=== PATIENT | female | born 1960 | race Hispanic/Latino ===

== ENCOUNTER 2024-01-13 03:10 | Inpatient (IN) | payer SELFPAY ==
[2024-01-13] MEDS ORDERED: Ondansetron PF 4 MG/2 ML Vial IVP PRN (03:40)
[2024-01-13 04:42] LABS: #Basophils Less than 0.03 10x3/uL (0.0-0.2); #Eosinphils Less than 0.03 10x3/uL (0.0-0.7); %Eosinophils 0.2 % (0.0-10.0); %Lymphocytes 19.9 % (21.0-51.0); %Monocytes 3.3 % (0.0-10.0); %Neutrophils 73.9 % (42.0-75.0); Hematocrit 23.2 % (36.0-47.0); Hemoglobin 6.4 g/dL (12.0-16.0); Mean Corpuscular HGB CONC 27.6 g/dL (32.0-36.0); Mean Corpuscular Hemoglobin 20.6 pg (27.0-31.0); Mean Corpuscular Volume 74.8 fL (78.0-98.0); Mean Platelet Volume 10.4 fL (7.4-10.4); Platelet Count 267 10x3/uL (130-400); RBC Distribution Width 22.6 % (11.5-14.5)
[2024-01-13 04:45] LABS: INR-International Normal Ratio 1.1; Prothrombin Time 13.8 sec (12.0-14.7)
[2024-01-13 04:58] LABS: ALT (SGPT) 15 U/L (8-55); AST (SGOT) 10 U/L (5-34); Albumin 2.2 g/dL (3.4-4.8); Alkaline Phosphatase 83 U/L (40-110); Anion Gap 13 mmol/L (10-20); BUN (Urea Nitrogen) 27 mg/dL (9.8-20.1); Bilirubin, Total 0.2 mg/dL (0.2-1.2); Calc. Creatinine Clearance 0 mL/min (70-130); Calcium 7.7 mg/dL (7.8-10.44); Carbon Dioxide 19 mmol/L (23-31); Chloride 119 mmol/L (98-107); Estimated GFR 99; Glucose 111 mg/dL (80-115); Iron 10 ug/dL (50-170); Iron Binding Capacity, Total 275 mcg/dL (265-497); Iron Binding Capacity, Total 278 mcg/dL (265-497); Potassium 3.9 mmol/L (3.5-5.1); Protein, Total 5.2 g/dL (5.8-8.1); Sodium 147 mmol/L (136-145)
[2024-01-13 05:09] LABS: Burr Cells SLIGHT = 2-5 cells HPF (0-1); Hypochromia SLIGHT = 6-15 cells HPF (0-5); Macrocytosis SLIGHT = 6-15 cells HPF (0-5); Ovalocytes MODERATE= 6-15 cells HPF (0-1); Platelet Adequacy Comment Platelets Normal; Polychromasia MODERATE = 3-4 cells HPF (0-2); Target Cells SLIGHT = 2-5 cells HPF (0-1); Tear Drops SLIGHT = 2-5 cells HPF (0-1)
[2024-01-13 08:14] VITALS: BMI 30.2
[2024-01-13] MEDS: Nystatin 500,000 UNITS/5 ML UDCUP SSW SCH (09:29)
[2024-01-13] MEDS: Pantoprazole 40 MG VIAL IVP SCH (09:29)
[2024-01-13] MEDS: Ferrous Sulfate 325 MG TAB PO SCH (09:29)
[2024-01-13] MEDS: traMADol HCl 50 MG TAB PO PRN (10:09)
[2024-01-13] MEDS ORDERED: Iopamidol 370 76% 100 ML VIAL ONE (11:08)
[2024-01-13 12:57] LABS: Hematocrit 26.4 % (36.0-47.0); Hemoglobin 7.9 g/dL (12.0-16.0); Platelet Count 254 10x3/uL (130-400)
[2024-01-13] MEDS: Methocarbamol 500 MG TAB PO PRN (13:24)
[2024-01-13 13:31] LABS: Prothrombin Time 13.5 sec (12.0-14.7)
[2024-01-13 15:27] LABS: Hematocrit 27.5 % (36.0-47.0); Hemoglobin 8.3 g/dL (12.0-16.0)
[2024-01-13] MEDS: Dextrose 5 %-0.45 % NaCl 1,000 ML IV SCH (15:33)
[2024-01-13 15:53] LABS: Anion Gap 11 mmol/L (10-20); BUN (Urea Nitrogen) 17 mg/dL (9.8-20.1); Calc. Creatinine Clearance 121 mL/min (70-130); Carbon Dioxide 22 mmol/L (23-31); Chloride 112 mmol/L (98-107); Estimated GFR 105; Glucose 80 mg/dL (80-115); Potassium 4.4 mmol/L (3.5-5.1); Sodium 141 mmol/L (136-145)
[2024-01-13] MEDS: Sodium Ferric Gluconate 250 MG in Sodium Chloride 0.9% 250 ML 250 ML IVPB SCH ×2 (16:10→16:33)
[2024-01-13] MEDS: Acetaminophen 325 MG TAB PO PRN (16:36)
[2024-01-13 18:21] VITALS: BMI 30.2
[2024-01-13 22:38] LABS: Hemoglobin 8.1 g/dL (12.0-16.0)
[2024-01-14] MEDS ORDERED: Morphine 2 MG/ML VIAL SLOW IVP PRN ×2 (04:21→13:59)
[2024-01-14] MEDS: Morphine 4 MG/ML VIAL SLOW IVP SCH (04:43)
[2024-01-14 05:21] LABS: Anion Gap 11 mmol/L (10-20); BUN (Urea Nitrogen) 9 mg/dL (9.8-20.1); Calc. Creatinine Clearance 129 mL/min (70-130); Calcium 7.9 mg/dL (7.8-10.44); Carbon Dioxide 24 mmol/L (23-31); Chloride 112 mmol/L (98-107); Estimated GFR 106; Glucose 81 mg/dL (80-115); Potassium 3.4 mmol/L (3.5-5.1); Sodium 144 mmol/L (136-145)
[2024-01-14 05:40] LABS: #Basophils Less than 0.03 10x3/uL (0.0-0.2); %Basophils 0.1 % (0.0-1.0); %Eosinophils 0.5 % (0.0-10.0); %Lymphocytes 22.6 % (21.0-51.0); %Monocytes 2.9 % (0.0-10.0); %Neutrophils 71.1 % (42.0-75.0)
[2024-01-14 05:51] LABS: Hematocrit 27.7 % (36.0-47.0); Hemoglobin 8.2 g/dL (12.0-16.0); Mean Corpuscular HGB CONC 29.6 g/dL (32.0-36.0); Mean Corpuscular Hemoglobin 22.3 pg (27.0-31.0); Mean Corpuscular Volume 75.5 fL (78.0-98.0); Mean Platelet Volume 10.7 fL (7.4-10.4); Platelet Count 267 10x3/uL (130-400); RBC Distribution Width 21.8 % (11.5-14.5); Red Blood Cell (RBC) Count 3.67 mill/uL (4.20-5.40)
[2024-01-14] MEDS: clonazePAM 1 MG TAB PO SCH (08:34)
[2024-01-14] MEDS: Ferrous Sulfate 325 MG TAB PO SCH (08:35)
[2024-01-14] MEDS: Potassium Chloride 40 MEQ in Premix 1 BAG IVPB SCH (11:48)
[2024-01-14] MEDS: Morphine 4 MG/ML VIAL SLOW IVP PRN (13:22)
[2024-01-14] MEDS ORDERED: Aluminum & Magnesium Hydroxide 60 ML, diphenhydrAMINE 150 MG, Lidocaine 2% Viscous Solu... SSW PRN ×2 (15:42→16:00)
[2024-01-14] MEDS: HYDROcodone/Acetaminophen 5/325 mg Tablet PO PRN (16:54)
[2024-01-15 04:01] LABS: #Basophils Less than 0.03 10x3/uL (0.0-0.2); %Basophils 0.1 % (0.0-1.0); %Eosinophils 0.8 % (0.0-10.0); %Lymphocytes 24.3 % (21.0-51.0); %Monocytes 2.9 % (0.0-10.0); %Neutrophils 67.9 % (42.0-75.0); Hematocrit 27.2 % (36.0-47.0); Hemoglobin 7.9 g/dL (12.0-16.0); Mean Corpuscular Hemoglobin 22.1 pg (27.0-31.0); Mean Platelet Volume 9.9 fL (7.4-10.4); Platelet Count 243 10x3/uL (130-400); RBC Distribution Width 22.7 % (11.5-14.5); Red Blood Cell (RBC) Count 3.58 mill/uL (4.20-5.40)
[2024-01-15 04:20] LABS: Anion Gap 11 mmol/L (10-20); BUN (Urea Nitrogen) 8 mg/dL (9.8-20.1); Calc. Creatinine Clearance 124 mL/min (70-130); Calcium 8.3 mg/dL (7.8-10.44); Carbon Dioxide 24 mmol/L (23-31); Chloride 111 mmol/L (98-107); Estimated GFR 105; Glucose 88 mg/dL (80-115); Potassium 3.3 mmol/L (3.5-5.1); Sodium 143 mmol/L (136-145)
[2024-01-15 08:59] LABS: Magnesium 1.9 mg/dL (1.6-2.6); Phosphorus 3.6 mg/dL (2.3-4.7)
[2024-01-15] MEDS: Furosemide 20 MG (2 mL) VIAL SLOW IVP SCH (09:47)
[2024-01-15] MEDS: Simethicone Chewable 80 MG TAB PO PRN (14:16)
[2024-01-15] MEDS: Lorazepam 0.5 MG TAB PO PRN (14:20)
[2024-01-15] MEDS: Gabapentin 100 MG CAP PO SCH (15:46)
[2024-01-15] MEDS: Clindamycin/D5W 900 MG in Premix 1 BAG IVPB SCH (15:47)
[2024-01-15] MEDS: Polyethylene Glycol 3350 17 GM Packet PO SCH (16:56)
[2024-01-15] MEDS: Lidocaine 4% Patch TD SCH (17:22)
[2024-01-16 04:31] LABS: #Basophils Less than 0.03 10x3/uL (0.0-0.2); %Basophils 0.2 % (0.0-1.0); %Eosinophils 0.5 % (0.0-10.0); %Lymphocytes 26.1 % (21.0-51.0); %Monocytes 3.7 % (0.0-10.0); %Neutrophils 66.4 % (42.0-75.0); Hematocrit 28.6 % (36.0-47.0); Hemoglobin 8.5 g/dL (12.0-16.0); Mean Corpuscular HGB CONC 29.7 g/dL (32.0-36.0); Mean Corpuscular Volume 74.1 fL (78.0-98.0); Mean Platelet Volume 10.4 fL (7.4-10.4); Platelet Count 277 10x3/uL (130-400); RBC Distribution Width 24.8 % (11.5-14.5); Red Blood Cell (RBC) Count 3.86 mill/uL (4.20-5.40)
[2024-01-16 04:46] LABS: Anion Gap 11 mmol/L (10-20); BUN (Urea Nitrogen) 16 mg/dL (9.8-20.1); Calc. Creatinine Clearance 107 mL/min (70-130); Calcium 8.3 mg/dL (7.8-10.44); Carbon Dioxide 24 mmol/L (23-31); Chloride 107 mmol/L (98-107); Estimated GFR 102; Glucose 113 mg/dL (80-115); Potassium 3.3 mmol/L (3.5-5.1); Sodium 139 mmol/L (136-145)
[2024-01-16] MEDS: Transdermal Patch Removal TOP SCH (05:33)
[2024-01-16] MEDS: Polyethylene Glycol 3350 17 GM Packet PO SCH (08:28)
[2024-01-16] MEDS: Furosemide 20 MG (2 mL) VIAL SLOW IVP SCH (09:52)
[2024-01-17] MEDS: Potassium Bicarbonate/Cit Ac 20 MEQ TAB PO SCH (08:52)
[2024-01-18 07:15] LABS: #Basophils Less than 0.03 10x3/uL (0.0-0.2); %Basophils 0.1 % (0.0-1.0); %Eosinophils 0.9 % (0.0-10.0); %Lymphocytes 25.7 % (21.0-51.0); %Monocytes 5.6 % (0.0-10.0); %Neutrophils 66.7 % (42.0-75.0); Hematocrit 29.5 % (36.0-47.0); Hemoglobin 8.5 g/dL (12.0-16.0); Mean Corpuscular HGB CONC 28.8 g/dL (32.0-36.0); Mean Corpuscular Hemoglobin 22.4 pg (27.0-31.0); Mean Corpuscular Volume 77.8 fL (78.0-98.0); Mean Platelet Volume 10.6 fL (7.4-10.4); Platelet Count 264 10x3/uL (130-400); RBC Distribution Width 25.4 % (11.5-14.5); Red Blood Cell (RBC) Count 3.79 mill/uL (4.20-5.40)
[2024-01-18 07:30] LABS: Anion Gap 10 mmol/L (10-20); BUN (Urea Nitrogen) 7 mg/dL (9.8-20.1); Calc. Creatinine Clearance 115 mL/min (70-130); Calcium 8.5 mg/dL (7.8-10.44); Carbon Dioxide 26 mmol/L (23-31); Chloride 105 mmol/L (98-107); Estimated GFR 103; Glucose 92 mg/dL (80-115); Potassium 3.4 mmol/L (3.5-5.1); Sodium 138 mmol/L (136-145)
[2024-01-18] MEDS: Potassium Chloride 20 MEQ TAB PO SCH ×2 (08:34→15:09)
[2024-01-18] MEDS: Sodium Chloride 0.9% 500 ML IV SCH (10:21)
[2024-01-18] MEDS: Lidocaine 1% w/Epinephrine 1:100K 20 ML VIAL ONE (13:47)
[2024-01-19 04:36] LABS: #Basophils Less than 0.03 10x3/uL (0.0-0.2); %Basophils 0.3 % (0.0-1.0); %Eosinophils 0.6 % (0.0-10.0); %Lymphocytes 26.7 % (21.0-51.0); %Monocytes 7.8 % (0.0-10.0); %Neutrophils 63.4 % (42.0-75.0); Hematocrit 28.3 % (36.0-47.0); Hemoglobin 8.2 g/dL (12.0-16.0); Mean Corpuscular Hemoglobin 23.2 pg (27.0-31.0); Mean Corpuscular Volume 79.9 fL (78.0-98.0); Mean Platelet Volume 10.6 fL (7.4-10.4); Platelet Count 234 10x3/uL (130-400); RBC Distribution Width 25.3 % (11.5-14.5); Red Blood Cell (RBC) Count 3.54 mill/uL (4.20-5.40)
[2024-01-19 04:43] LABS: Anion Gap 9 mmol/L (10-20); BUN (Urea Nitrogen) 7 mg/dL (9.8-20.1); Calc. Creatinine Clearance 119 mL/min (70-130); Calcium 8.2 mg/dL (7.8-10.44); Carbon Dioxide 24 mmol/L (23-31); Chloride 108 mmol/L (98-107); Estimated GFR 104; Glucose 96 mg/dL (80-115); Potassium 3.5 mmol/L (3.5-5.1); Sodium 137 mmol/L (136-145)
[2024-01-19] MEDS: Morphine 4 MG/ML VIAL SLOW IVP PRN (12:17)
[2024-01-19] MEDS: Sulfameth/Trimethoprim DS 800-160mg TAB PO SCH (20:56)
[2024-01-19] MEDS: Diclofenac 1% 50 GM TOPICAL GEL TP PRN (20:57)
[2024-01-20 04:26] LABS: #Basophils Less than 0.03 10x3/uL (0.0-0.2); %Basophils 0.3 % (0.0-1.0); %Eosinophils 1.1 % (0.0-10.0); %Lymphocytes 27.6 % (21.0-51.0); %Monocytes 6.8 % (0.0-10.0); %Neutrophils 63.4 % (42.0-75.0); Hematocrit 29.3 % (36.0-47.0); Hemoglobin 8.7 g/dL (12.0-16.0); Mean Corpuscular HGB CONC 29.7 g/dL (32.0-36.0); Mean Corpuscular Hemoglobin 23.1 pg (27.0-31.0); Mean Corpuscular Volume 77.7 fL (78.0-98.0); Mean Platelet Volume 10.4 fL (7.4-10.4); Platelet Count 264 10x3/uL (130-400); RBC Distribution Width 25.3 % (11.5-14.5); Red Blood Cell (RBC) Count 3.77 mill/uL (4.20-5.40)
[2024-01-20 04:36] LABS: Anion Gap 9 mmol/L (10-20); BUN (Urea Nitrogen) 7 mg/dL (9.8-20.1); Calc. Creatinine Clearance 121 mL/min (70-130); Calcium 8.7 mg/dL (7.8-10.44); Carbon Dioxide 25 mmol/L (23-31); Chloride 103 mmol/L (98-107); Estimated GFR 105; Glucose 93 mg/dL (80-115); Potassium 3.2 mmol/L (3.5-5.1); Sodium 134 mmol/L (136-145)
[2024-01-20] MEDS: Potassium Chloride 20 MEQ TAB PO SCH (05:32)
[2024-01-20] MEDS: Pantoprazole DR 40 MG TAB PO SCH (09:58)
[2024-01-20] MEDS: Ketorolac Tromethamine 30 MG (1 mL) VIAL IVP SCH (10:18)
[2024-01-20] MEDS: GoLYTELY 4,000 ml Bottle PO SCH (15:21)
[2024-01-20] MEDS: Gabapentin 300 MG CAP PO SCH (15:22)
[2024-01-21 08:45] LABS: #Basophils 0.03 10x3/uL (0.0-0.2); %Basophils 0.4 % (0.0-1.0); %Eosinophils 1.3 % (0.0-10.0); %Lymphocytes 30.3 % (21.0-51.0); %Monocytes 5.7 % (0.0-10.0); %Neutrophils 61.3 % (42.0-75.0); Hematocrit 31.6 % (36.0-47.0); Hemoglobin 9.3 g/dL (12.0-16.0); Mean Corpuscular HGB CONC 29.4 g/dL (32.0-36.0); Mean Corpuscular Hemoglobin 22.4 pg (27.0-31.0); Platelet Count 286 10x3/uL (130-400); RBC Distribution Width 26.4 % (11.5-14.5); Red Blood Cell (RBC) Count 4.16 mill/uL (4.20-5.40)
[2024-01-21 09:07] LABS: Anion Gap 18 mmol/L (10-20); BUN (Urea Nitrogen) 6 mg/dL (9.8-20.1); Calc. Creatinine Clearance 110 mL/min (70-130); Calcium 8.5 mg/dL (7.8-10.44); Carbon Dioxide 22 mmol/L (23-31); Chloride 105 mmol/L (98-107); Estimated GFR 102; Glucose 70 mg/dL (80-115); Potassium 3.6 mmol/L (3.5-5.1); Sodium 141 mmol/L (136-145)
[2024-01-21 09:41] LABS: Hypochromia SLIGHT = 6-15 cells HPF (0-5); Microcytosis SLIGHT = 6-15 cells HPF (0-5); Platelet Adequacy Comment Platelets Normal; Polychromasia MODERATE = 3-4 cells HPF (0-2)
[2024-01-21] MEDS ORDERED: Iopamidol-370 76% 500 ML MDV (1 ML CHARGE) ONE (10:33)
[2024-01-21] MEDS ORDERED: Lidocaine 1% PF 5 ML VIAL ONE (12:09)
[2024-01-21] MEDS ORDERED: PROPOFOL 20 ML ONE (12:09)
[2024-01-21] MEDS: Enoxaparin 80 MG (0.8 mL) SYRINGE SC SCH (18:06)
[2024-01-21] MEDS: Ciprofloxacin 500 MG TAB PO SCH (21:22)
[2024-01-22 06:22] LABS: Anion Gap 10 mmol/L (10-20); BUN (Urea Nitrogen) 8 mg/dL (9.8-20.1); Calc. Creatinine Clearance 109 mL/min (70-130); Calcium 7.7 mg/dL (7.8-10.44); Carbon Dioxide 24 mmol/L (23-31); Chloride 111 mmol/L (98-107); Estimated GFR 102; Glucose 86 mg/dL (80-115); Potassium 3.5 mmol/L (3.5-5.1); Sodium 141 mmol/L (136-145)
[2024-01-22 06:39] LABS: #Basophils Less than 0.03 10x3/uL (0.0-0.2); %Basophils 0.2 % (0.0-1.0); %Eosinophils 0.8 % (0.0-10.0); %Monocytes 9.2 % (0.0-10.0); %Neutrophils 53.8 % (42.0-75.0); Hematocrit 27.4 % (36.0-47.0); Mean Corpuscular HGB CONC 29.2 g/dL (32.0-36.0); Mean Corpuscular Hemoglobin 23.1 pg (27.0-31.0); Mean Corpuscular Volume 79.2 fL (78.0-98.0); Mean Platelet Volume 11.2 fL (7.4-10.4); Platelet Count 283 10x3/uL (130-400); RBC Distribution Width 26.4 % (11.5-14.5); Red Blood Cell (RBC) Count 3.46 mill/uL (4.20-5.40)
[2024-01-22] MEDS: Enoxaparin 80 MG (0.8 mL) SYRINGE SC SCH (09:06)
[2024-01-22 10:56] LABS: Syphilis Antibody Nonreactive (Nonreactive); Syphilis Antibody Index 0.06 S/CO (<1.00 Non-Reactive)
[2024-01-22 18:34] LABS: Hematocrit 28.8 % (36.0-47.0); Hemoglobin 8.3 g/dL (12.0-16.0)
[2024-01-22] MEDS: Sodium Ferric Gluconate 250 MG in Sodium Chloride 0.9% 250 ML 250 ML IVPB SCH (21:15)
[2024-01-23 09:45] LABS: Hematocrit 27.3 % (36.0-47.0); Hemoglobin 7.8 g/dL (12.0-16.0); Mean Corpuscular HGB CONC 28.6 g/dL (32.0-36.0); Mean Corpuscular Hemoglobin 23.3 pg (27.0-31.0); Mean Corpuscular Volume 81.5 fL (78.0-98.0); Mean Platelet Volume 10.7 fL (7.4-10.4); Platelet Count 254 10x3/uL (130-400); RBC Distribution Width 25.7 % (11.5-14.5); Red Blood Cell (RBC) Count 3.35 mill/uL (4.20-5.40)
[2024-01-23 09:51] LABS: Anion Gap 12 mmol/L (10-20); BUN (Urea Nitrogen) 5 mg/dL (9.8-20.1); Calc. Creatinine Clearance 137 mL/min (70-130); Calcium 8.3 mg/dL (7.8-10.44); Carbon Dioxide 21 mmol/L (23-31); Chloride 113 mmol/L (98-107); Estimated GFR 108; Glucose 88 mg/dL (80-115); Potassium 3.3 mmol/L (3.5-5.1); Sodium 143 mmol/L (136-145)
[2024-01-23 10:34] LABS: Band 4 % (5-11); Eosinophils 1 % (0-10); Large Platelets 7.8 % (0-5); Lymphocytes 26 % (21-51); Macrocytosis SLIGHT = 6-15 cells HPF (0-5); Metamyelocyte 1 % (0-0); Monocytes 5 % (0-10); Neutrophil 61 % (42-75); Ovalocytes SLIGHT = 2-5 cells HPF (0-1); Platelet Adequacy Comment Platelets Normal; Polychromasia MODERATE = 3-4 cells HPF (0-2); Reactive Lymphocytes 1 % (0-10)
[2024-01-23] MEDS: Potassium Chloride 20 MEQ TAB PO SCH (15:08)
[2024-01-23] MEDS: Gabapentin 300 MG CAP PO SCH (15:09)
[2024-01-23] MEDS: Sodium Ferric Gluconate 250 MG in Sodium Chloride 0.9% 250 ML 250 ML IVPB SCH (16:35)
[2024-01-23] MEDS: Apixaban 5 MG TAB PO SCH (21:23)
[2024-01-23] MEDS: Calcium Carbonate 500 MG ChewTAB PO PRN (21:30)
[2024-01-24 06:43] LABS: #Basophils 0.04 10x3/uL (0.0-0.2); %Basophils 0.7 % (0.0-1.0); %Eosinophils 2.1 % (0.0-10.0); %Monocytes 7.1 % (0.0-10.0); Hematocrit 27.8 % (36.0-47.0); Hemoglobin 7.8 g/dL (12.0-16.0); Mean Corpuscular HGB CONC 28.1 g/dL (32.0-36.0); Mean Corpuscular Hemoglobin 22.7 pg (27.0-31.0); Mean Corpuscular Volume 80.8 fL (78.0-98.0); Platelet Count 267 10x3/uL (130-400); RBC Distribution Width 25.9 % (11.5-14.5); Red Blood Cell (RBC) Count 3.44 mill/uL (4.20-5.40)
[2024-01-24 07:08] LABS: Anisocytosis MODERATE=16-30 cells HPF (0-5); Burr Cells SLIGHT = 2-5 cells HPF (0-1); Hypochromia SLIGHT = 6-15 cells HPF (0-5); Microcytosis SLIGHT = 6-15 cells HPF (0-5); Platelet Adequacy Comment Platelets Normal; Polychromasia SLIGHT = 2-3 cells HPF (0-2); Tear Drops SLIGHT = 2-5 cells HPF (0-1)
[2024-01-24 08:03] LABS: Anion Gap 12 mmol/L (10-20); BUN (Urea Nitrogen) 5 mg/dL (9.8-20.1); Calc. Creatinine Clearance 129 mL/min (70-130); Calcium 8.4 mg/dL (7.8-10.44); Carbon Dioxide 20 mmol/L (23-31); Chloride 114 mmol/L (98-107); Estimated GFR 106; Glucose 88 mg/dL (80-115); Potassium 3.4 mmol/L (3.5-5.1); Sodium 143 mmol/L (136-145)
[2024-01-24] MEDS: Potassium Chloride 20 MEQ TAB PO SCH (12:11)
[2024-01-24] MEDS: Sodium Ferric Gluconate 250 MG in Sodium Chloride 0.9% 250 ML 250 ML IVPB SCH (15:45)
[2024-01-24] MEDS ORDERED: Lorazepam 0.5 MG TAB PO PRN (16:01)
[2024-01-24] MEDS: Sodium Chloride 0.9% 500 ML IV SCH (17:47)
[2024-01-25] MEDS: HYDROcodone/Acetaminophen 5/325 mg Tablet PO PRN (02:59)
[2024-01-25 08:07] LABS: Anion Gap 9 mmol/L (10-20); BUN (Urea Nitrogen) 8 mg/dL (9.8-20.1); Calc. Creatinine Clearance 126 mL/min (70-130); Calcium 8.2 mg/dL (7.8-10.44); Carbon Dioxide 25 mmol/L (23-31); Chloride 114 mmol/L (98-107); Estimated GFR 106; Glucose 89 mg/dL (80-115); Potassium 3.7 mmol/L (3.5-5.1); Sodium 144 mmol/L (136-145)
[2024-01-25 08:08] LABS: #Basophils Less than 0.03 10x3/uL (0.0-0.2); %Basophils 0.3 % (0.0-1.0); %Eosinophils 1.7 % (0.0-10.0); %Lymphocytes 33.2 % (21.0-51.0); %Monocytes 7.4 % (0.0-10.0); %Neutrophils 56.1 % (42.0-75.0); Hematocrit 28.3 % (36.0-47.0); Hemoglobin 7.9 g/dL (12.0-16.0); Mean Corpuscular HGB CONC 27.9 g/dL (32.0-36.0); Mean Corpuscular Hemoglobin 23.6 pg (27.0-31.0); Mean Corpuscular Volume 84.5 fL (78.0-98.0); Platelet Count 288 10x3/uL (130-400); RBC Distribution Width 26.7 % (11.5-14.5); Red Blood Cell (RBC) Count 3.35 mill/uL (4.20-5.40)
[2024-01-25 08:12] VITALS: TEMP 98.1
[2024-01-25 08:21] LABS: Platelet Adequacy Comment Platelets Normal; Poikilocytosis SLIGHT = 6-15 cells HPF (0-5); Polychromasia SLIGHT = 2-3 cells HPF (0-2); Schistocytes SLIGHT = 2-5 cells HPF (0-1)
[2024-01-25] MEDS: clonazePAM 1 MG TAB PO SCH (08:32)
[2024-01-25 16:36] VITALS: BP 111/70
[2024-01-27 16:12] LABS: QuantiFERON-TB Gold Plus Negative (Negative)
== END 2024-01-25 17:09 | disposition home or self-care (01) | DRG 811 ==
LOC: 2SW 03:20 → OBSVTOIN 14:14 → T4-A 01-17 13:56
PROVIDERS: ADMIT Internal Medicine; ATTEND Internal Medicine
PROC: 0Y9J0ZZ Drainage of Left Lower Leg, Open Approach (ICD-10-PCS; principal; 2024-01-18)
PROC: 0DBC8ZX Excision of Ileocecal Valve, Via Natural or Artificial Opening Endoscopic, Diagnostic (ICD-10-PCS; 2024-01-21)
PROC: 0DBN8ZX Excision of Sigmoid Colon, Via Natural or Artificial Opening Endoscopic, Diagnostic (ICD-10-PCS; 2024-01-21)
DX: D50.9 Iron deficiency anemia, unspecified (principal); I26.99 Other pulmonary embolism without acute cor pulmonale; L03.116 Cellulitis of left lower limb; B37.0 Candidal stomatitis; E87.20 Acidosis, unspecified; K92.2 Gastrointestinal hemorrhage, unspecified; L02.416 Cutaneous abscess of left lower limb; K63.3 Ulcer of intestine; K55.1 Chronic vascular disorders of intestine; M19.90 Unspecified osteoarthritis, unspecified site; I10 Essential (primary) hypertension; M79.10 Myalgia, unspecified site; E87.6 Hypokalemia; R62.7 Adult failure to thrive; S81.801A Unspecified open wound, right lower leg, initial encounter; X58.XXXA Exposure to other specified factors, initial encounter
CPT/HCPCS: 36415; 36416; 36430; 71045; 74174; 74177; 76999; 80048; 80053; 82728; 83540; 83550; 83735; 83880; 84100; 84443; 85025; 85384; 85610; 85730; 86480; 86780; 86850; 86900; 86901; 87070; 87077; 87186; 87205; 88305; 96374; 97139; C9113; G0378; J1650; J1885; J1940; J2270; J2704; J2916; J3480; J3490; J7030; J7042; J7050; P9016; Q9967

== ENCOUNTER 2024-07-11 22:19 | Emergency (ER) | payer BC, SELFPAY ==
[2024-07-11] MEDS ORDERED: Morphine 4 MG/ML VIAL ONE (23:38)
[2024-07-11] MEDS ORDERED: Ondansetron PF 4 MG/2 ML Vial ONE (23:39)
[2024-07-11 23:40] LABS: #Basophils Less than 0.03 10x3/uL (0.0-0.2); %Basophils 0.1 % (0.0-1.0); %Eosinophils 0.6 % (0.0-10.0); %Lymphocytes 11.1 % (21.0-51.0); %Monocytes 7.9 % (0.0-10.0); %Neutrophils 79.9 % (42.0-75.0); Hematocrit 30.1 % (36.0-47.0); Hemoglobin 8.4 g/dL (12.0-16.0); Mean Corpuscular HGB CONC 27.9 g/dL (32.0-36.0); Mean Corpuscular Hemoglobin 20.4 pg (27.0-31.0); Mean Corpuscular Volume 73.1 fL (78.0-98.0); Platelet Count 232 10x3/uL (130-400); Red Blood Cell (RBC) Count 4.12 mill/uL (4.20-5.40)
[2024-07-11 23:47] LABS: INR-International Normal Ratio 0.9; Prothrombin Time 12.5 sec (12.0-14.7)
[2024-07-11 23:49] LABS: PTT 22.7 sec (22.9-36.1)
[2024-07-12 00:02] LABS: Elliptocytes SLIGHT = 2-5 cells HPF (0-1); Hypochromia SLIGHT = 6-15 cells HPF (0-5); Microcytosis SLIGHT = 6-15 cells HPF (0-5); Platelet Adequacy Comment Platelets Normal; Polychromasia SLIGHT = 2-3 cells HPF (0-2); Tear Drops SLIGHT = 2-5 cells HPF (0-1)
[2024-07-12 00:18] LABS: ALT (SGPT) 386 U/L (8-55); AST (SGOT) 394 U/L (5-34); Albumin 3.4 g/dL (3.4-4.8); Alkaline Phosphatase 329 U/L (40-110); Anion Gap 11 mmol/L (10-20); BUN (Urea Nitrogen) 27 mg/dL (9.8-20.1); Bilirubin, Total 0.4 mg/dL (0.2-1.2); Calc. Creatinine Clearance 0 mL/min (70-130); Calcium 8.4 mg/dL (7.8-10.44); Carbon Dioxide 27 mmol/L (23-31); Chloride 106 mmol/L (98-107); Estimated GFR 80; Globulin 2.9 g/dL (2.4-3.5); Glucose 106 mg/dL (80-115); Potassium 4.1 mmol/L (3.5-5.1); Protein, Total 6.3 g/dL (5.8-8.1); Sodium 140 mmol/L (136-145)
[2024-07-12] MEDS ORDERED: HYDROcodone/Acetaminophen 5/325 mg Tablet ONE (01:30)
== END 2024-07-12 02:40 | disposition home or self-care (01) ==
LOC: ERS 22:19
DX: S82.391A Other fracture of lower end of right tibia, initial encounter for closed fracture (principal); S82.831A Other fracture of upper and lower end of right fibula, initial encounter for closed fracture; W18.30XA Fall on same level, unspecified, initial encounter
CPT/HCPCS: 36415; 71045; 80053; 85025; 85610; 85730; 94760; 96361; 96374; 96375; J2272; J2405

== ENCOUNTER 2024-07-21 10:23 | Inpatient (IN) | payer BC ==
[2024-07-21] MEDS ORDERED: Morphine 4 MG/ML VIAL ONE (11:28)
[2024-07-21 12:22] LABS: #Basophils 0.03 10x3/uL (0.0-0.2); %Basophils 0.3 % (0.0-1.0); %Eosinophils 2.1 % (0.0-10.0); %Lymphocytes 20.2 % (21.0-51.0); %Monocytes 6.9 % (0.0-10.0); %Neutrophils 69.9 % (42.0-75.0); ALT (SGPT) 142 U/L (8-55); AST (SGOT) 77 U/L (5-34); Albumin 3.2 g/dL (3.4-4.8); Alkaline Phosphatase 591 U/L (40-110); Anion Gap 14 mmol/L (10-20); BUN (Urea Nitrogen) 13 mg/dL (9.8-20.1); Bilirubin, Total 0.5 mg/dL (0.2-1.2); Calc. Creatinine Clearance 0 mL/min (70-130); Calcium 8.8 mg/dL (7.8-10.44); Carbon Dioxide 26 mmol/L (23-31); Chloride 104 mmol/L (98-107); Estimated GFR 101; Globulin 3.7 g/dL (2.4-3.5); Glucose 82 mg/dL (80-115); Hematocrit 33.4 % (36.0-47.0); Hemoglobin 9.4 g/dL (12.0-16.0); Mean Corpuscular HGB CONC 28.1 g/dL (32.0-36.0); Mean Corpuscular Volume 71.1 fL (78.0-98.0); Platelet Count 227 10x3/uL (130-400); Potassium 4.1 mmol/L (3.5-5.1); Protein, Total 6.9 g/dL (5.8-8.1); Sodium 140 mmol/L (136-145)
[2024-07-21 12:47] LABS: Elliptocytes SLIGHT = 2-5 cells HPF (0-1); Hypochromia SLIGHT = 6-15 cells HPF (0-5); Platelet Adequacy Comment Platelets Normal; Polychromasia MODERATE = 3-4 cells HPF (0-2); Schistocytes SLIGHT = 2-5 cells HPF (0-1); Stomatocytes SLIGHT = 2-5 cells HPF (0-1); Tear Drops SLIGHT = 2-5 cells HPF (0-1)
[2024-07-21 14:48] LABS: INR-International Normal Ratio 0.9; Prothrombin Time 12.3 sec (12.0-14.7)
[2024-07-21 14:49] LABS: PTT 26.7 sec (22.9-36.1)
[2024-07-21] MEDS ORDERED: CEFAZOLIN 2 GM in Sodium Chloride 0.9% 100 ML IVPB SCH (15:30)
[2024-07-21] MEDS: TETANUS, DIPHTHERIA TOX,ADULT (TDVAX) 0.5 ML VIAL IM ONE (17:35)
[2024-07-21] MEDS: HYDROcodone/Acetaminophen 5/325 mg Tablet PO PRN (21:53)
[2024-07-22 05:06] LABS: #Basophils Less than 0.03 10x3/uL (0.0-0.2); %Basophils 0.2 % (0.0-1.0); %Eosinophils 2.6 % (0.0-10.0); %Lymphocytes 19.2 % (21.0-51.0); %Monocytes 7.3 % (0.0-10.0); %Neutrophils 70.2 % (42.0-75.0); Hematocrit 29.2 % (36.0-47.0); Hemoglobin 8.3 g/dL (12.0-16.0); Mean Corpuscular HGB CONC 28.4 g/dL (32.0-36.0); Mean Corpuscular Hemoglobin 20.3 pg (27.0-31.0); Mean Corpuscular Volume 71.4 fL (78.0-98.0); Platelet Count 175 10x3/uL (130-400); RBC Distribution Width 24.7 % (11.5-14.5); Red Blood Cell (RBC) Count 4.09 mill/uL (4.20-5.40)
[2024-07-22 05:15] LABS: ALT (SGPT) 172 U/L (8-55); AST (SGOT) 115 U/L (5-34); Albumin 2.8 g/dL (3.4-4.8); Alkaline Phosphatase 557 U/L (40-110); Anion Gap 13 mmol/L (10-20); BUN (Urea Nitrogen) 13 mg/dL (9.8-20.1); Bilirubin, Total 0.6 mg/dL (0.2-1.2); Calc. Creatinine Clearance 139 mL/min (70-130); Calcium 8.6 mg/dL (7.8-10.44); Carbon Dioxide 26 mmol/L (23-31); Chloride 106 mmol/L (98-107); Estimated GFR 104; Globulin 3.1 g/dL (2.4-3.5); Glucose 107 mg/dL (80-115); Potassium 3.7 mmol/L (3.5-5.1); Protein, Total 5.9 g/dL (5.8-8.1); Sodium 141 mmol/L (136-145)
[2024-07-22 05:52] LABS: Hypochromia SLIGHT = 6-15 cells HPF (0-5); Microcytosis MODERATE=15-30 cells HPF (0-5); Ovalocytes SLIGHT = 2-5 cells HPF (0-1); Platelet Adequacy Comment Platelets Normal; Polychromasia MODERATE = 3-4 cells HPF (0-2); Tear Drops SLIGHT = 2-5 cells HPF (0-1)
[2024-07-22] MEDS ORDERED: CEFAZOLIN 2 GM VIAL ONE (09:49)
[2024-07-22] MEDS ORDERED: Lidocaine 1% PF 5 ML VIAL ONE (10:02)
[2024-07-22] MEDS ORDERED: Rocuronium Bromide 10 MG/ML (10ML VIAL) ONE (10:02)
[2024-07-22] MEDS ORDERED: fentaNYL PF 100 MCG/2 ML SYRINGE ONE ×3 (10:02→12:23)
[2024-07-22] MEDS ORDERED: PROPOFOL 20 ML ONE (10:02)
[2024-07-22] MEDS ORDERED: Ondansetron PF 4 MG/2 ML Vial ONE (10:03)
[2024-07-22] MEDS ORDERED: Dexamethasone 20 MG/5 ML VIAL ONE (10:03)
[2024-07-22] MEDS ORDERED: Phenylephrine 10 MG/ML VIAL ONE (10:57)
[2024-07-22] MEDS ORDERED: PACU-Morphine 4MG/ML VIAL SLOW IVP PRN (11:10)
[2024-07-22] MEDS ORDERED: Meperidine HCl/PF 25 MG/ML VIAL SLOW IVP PRN (11:10)
[2024-07-22] MEDS ORDERED: Promethazine HCl 25 MG/ML VIAL IM PRN (11:10)
[2024-07-22] MEDS ORDERED: Ondansetron HCl/PF 4 MG/2 ML Vial IVP PRN (11:10)
[2024-07-22] MEDS ORDERED: HYDROmorphone 2 MG/ML VIAL SLOW IVP PRN (11:10)
[2024-07-22] MEDS ORDERED: SUGAMMADEX SODIUM 200 MG/2 ML VIAL ONE (11:25)
[2024-07-22] MEDS ORDERED: HYDROmorphone 0.5 MG/0.5 ML SYRINGE ONE (11:47)
[2024-07-22] MEDS ORDERED: Morphine 4 MG/ML VIAL ONE (12:04)
[2024-07-22] MEDS ORDERED: Ketorolac Tromethamine 30 MG (1 mL) VIAL ONE (12:06)
[2024-07-22] MEDS ORDERED: fentaNYL 50 mcg/mL 1 mL Vial ONE (12:38)
[2024-07-22] MEDS ORDERED: Promethazine HCl 25 MG/ML VIAL ONE (12:54)
[2024-07-22] MEDS: HYDROcodone/Acetaminophen 5/325 mg Tablet PO PRN (17:35)
[2024-07-22] MEDS: clonazePAM 0.5 MG TAB PO PRN (21:35)
[2024-07-22] MEDS ORDERED: Preparation H Suppository PR PRN (22:13)
[2024-07-23 05:47] LABS: #Basophils Less than 0.03 10x3/uL (0.0-0.2); #Eosinophils Less than 0.03 10x3/uL (0.0-0.7); %Basophils 0.1 % (0.0-1.0); %Eosinophils 0.1 % (0.0-10.0); %Lymphocytes 9.8 % (21.0-51.0); %Monocytes 5.9 % (0.0-10.0); %Neutrophils 83.6 % (42.0-75.0); Hematocrit 28.5 % (36.0-47.0); Mean Corpuscular HGB CONC 28.1 g/dL (32.0-36.0); Mean Corpuscular Hemoglobin 20.2 pg (27.0-31.0); Mean Corpuscular Volume 71.8 fL (78.0-98.0); Platelet Count 168 10x3/uL (130-400); RBC Distribution Width 24.8 % (11.5-14.5); Red Blood Cell (RBC) Count 3.97 mill/uL (4.20-5.40)
[2024-07-23] MEDS: Polyethylene Glycol 3350 17 GM Packet PO PRN (05:54)
[2024-07-23] MEDS: Docusate 100 MG CAP PO PRN (05:54)
[2024-07-23 06:18] LABS: Anisocytosis SLIGHT = 6-15 cells HPF (0-5); Hypochromia SLIGHT = 6-15 cells HPF (0-5); Microcytosis SLIGHT = 6-15 cells HPF (0-5); Platelet Adequacy Comment Platelets Normal; Polychromasia MODERATE = 3-4 cells HPF (0-2); Tear Drops SLIGHT = 2-5 cells HPF (0-1)
[2024-07-23 06:41] LABS: Anion Gap 15 mmol/L (10-20); BUN (Urea Nitrogen) 9 mg/dL (9.8-20.1); Calc. Creatinine Clearance 148 mL/min (70-130); Calcium 8.6 mg/dL (7.8-10.44); Carbon Dioxide 21 mmol/L (23-31); Chloride 109 mmol/L (98-107); Estimated GFR 106; Glucose 96 mg/dL (80-115); Magnesium 2.1 mg/dL (1.6-2.6); Potassium 3.9 mmol/L (3.5-5.1); Sodium 141 mmol/L (136-145)
[2024-07-23] MEDS: DULoxetine 60 MG CAP PO SCH (09:21)
[2024-07-23] MEDS: FLU (Fluarix Triv) TS24-25(6MOS UP)/PF 45 MCG/0.5 ML Syringe IM ONE (09:21)
[2024-07-23] MEDS: Pantoprazole DR 40 MG TAB PO SCH (09:21)
[2024-07-23 09:25] LABS: ALT (SGPT) 165 U/L (8-55); AST (SGOT) 100 U/L (5-34); Albumin 2.8 g/dL (3.4-4.8); Alkaline Phosphatase 554 U/L (40-110); Bilirubin, Direct 0.2 mg/dL (0.1-0.3); Bilirubin, Total 0.5 mg/dL (0.2-1.2); Gamma GT (GGT) 658 U/L (9-36)
[2024-07-23] MEDS: Pregabalin 50 MG CAP PO SCH ×2 (16:10→20:21)
[2024-07-23] MEDS: Piperacillin/Tazobactam 3.375 GM in Sodium Chloride 0.9% 100 ML IVPB SCH (16:10)
[2024-07-23] MEDS: Lactated Ringer's 1,000 ML IV SCH (16:35)
[2024-07-23] MEDS ORDERED: Piperacillin/Tazobactam 3.375 GM in Sodium Chloride 0.9% 100 ML IVPB SCH (18:00)
[2024-07-23] MEDS: clonazePAM 1 MG TAB PO SCH (20:21)
[2024-07-23] MEDS: Senokot S 8.6-50 MG TAB PO SCH (20:21)
[2024-07-24] MEDS: Melatonin 3 MG TAB PO SCH (01:38)
[2024-07-24 06:09] LABS: #Basophils Less than 0.03 10x3/uL (0.0-0.2); %Basophils 0.2 % (0.0-1.0); %Lymphocytes 23.2 % (21.0-51.0); %Monocytes 8.2 % (0.0-10.0); %Neutrophils 67.1 % (42.0-75.0); Hematocrit 27.5 % (36.0-47.0); Hemoglobin 7.8 g/dL (12.0-16.0); Mean Corpuscular HGB CONC 28.4 g/dL (32.0-36.0); Mean Corpuscular Hemoglobin 20.1 pg (27.0-31.0); Mean Corpuscular Volume 70.9 fL (78.0-98.0); Platelet Count 176 10x3/uL (130-400); RBC Distribution Width 24.9 % (11.5-14.5); Red Blood Cell (RBC) Count 3.88 mill/uL (4.20-5.40)
[2024-07-24 06:18] LABS: Immunoglob - G (Total IgG) 744 mg/dL (552-1631); Immunoglob - M (Total IgM) 127 mg/dL (33-293)
[2024-07-24 06:23] LABS: ALT (SGPT) 100 U/L (8-55); ALT (SGPT) 104 U/L (8-55); AST (SGOT) 31 U/L (5-34); AST (SGOT) 32 U/L (5-34); Albumin 2.7 g/dL (3.4-4.8); Alkaline Phosphatase 453 U/L (40-110); Alkaline Phosphatase 459 U/L (40-110); Anion Gap 11 mmol/L (10-20); BUN (Urea Nitrogen) 9 mg/dL (9.8-20.1); Bilirubin, Direct 0.2 mg/dL (0.1-0.3); Bilirubin, Total 0.4 mg/dL (0.2-1.2); Bilirubin, Total 0.5 mg/dL (0.2-1.2); Calc. Creatinine Clearance 148 mL/min (70-130); Calcium 8.2 mg/dL (7.8-10.44); Carbon Dioxide 25 mmol/L (23-31); Chloride 107 mmol/L (98-107); Estimated GFR 106; Glucose 102 mg/dL (80-115); Iron Binding Capacity, Total 301 mcg/dL (265-497); Potassium 3.1 mmol/L (3.5-5.1); Protein, Total 5.7 g/dL (5.8-8.1); Sodium 140 mmol/L (136-145)
[2024-07-24 06:32] LABS: Ferritin 30.62 ng/mL (10-291)
[2024-07-24 07:22] LABS: HBsAg Index 0.26 S/CO (0-0.99); Hep A IgM AB NONREACTIVE (NonReactive); Hep A IgM S/CO 0.26 S/CO (0-0.79); Hep B Surf Ag NONREACTIVE S/CO (NonReactive); Hep C IgG Ab NONREACTIVE S/CO (NonReactive); Hep C Index 0.13 S/CO (0-0.79); Hepatitis B Core IgM Abs NONREACTIVE S/CO (NonReactive)
[2024-07-24] MEDS ORDERED: Electrolyte Replacement Protocol 1 EACH FS SCH (08:00)
[2024-07-24] MEDS: Ondansetron PF 4 MG/2 ML Vial IVP PRN (08:17)
[2024-07-24] MEDS: Polyethylene Glycol 3350 17 GM Packet PO SCH (08:17)
[2024-07-24] MEDS: Potassium Chloride 20 MEQ TAB PO SCH (08:17)
[2024-07-24] MEDS: Sodium Ferric Gluconate 250 MG in Sodium Chloride 0.9% 250 ML 250 ML IVPB SCH (15:21)
[2024-07-25 06:09] LABS: #Basophils Less than 0.03 10x3/uL (0.0-0.2); %Basophils 0.3 % (0.0-1.0); %Eosinophils 1.9 % (0.0-10.0); %Lymphocytes 22.6 % (21.0-51.0); %Monocytes 7.8 % (0.0-10.0); %Neutrophils 67.1 % (42.0-75.0); Hematocrit 28.2 % (36.0-47.0); Hemoglobin 7.6 g/dL (12.0-16.0); Mean Corpuscular Hemoglobin 19.3 pg (27.0-31.0); Mean Corpuscular Volume 71.6 fL (78.0-98.0); Platelet Count 181 10x3/uL (130-400); RBC Distribution Width 24.8 % (11.5-14.5); Red Blood Cell (RBC) Count 3.94 mill/uL (4.20-5.40)
[2024-07-25 06:35] LABS: Hypochromia SLIGHT = 6-15 cells HPF (0-5); Microcytosis SLIGHT = 6-15 cells HPF (0-5); Platelet Adequacy Comment Platelets Normal; Polychromasia SLIGHT = 2-3 cells HPF (0-2); Tear Drops SLIGHT = 2-5 cells HPF (0-1)
[2024-07-25 06:45] LABS: ALT (SGPT) 67 U/L (8-55); AST (SGOT) 19 U/L (5-34); Albumin 2.5 g/dL (3.4-4.8); Alkaline Phosphatase 375 U/L (40-110); Anion Gap 10 mmol/L (10-20); BUN (Urea Nitrogen) 7 mg/dL (9.8-20.1); Bilirubin, Total 0.4 mg/dL (0.2-1.2); Calc. Creatinine Clearance 134 mL/min (70-130); Calcium 8.4 mg/dL (7.8-10.44); Carbon Dioxide 26 mmol/L (23-31); Chloride 109 mmol/L (98-107); Estimated GFR 103; Globulin 2.9 g/dL (2.4-3.5); Glucose 95 mg/dL (80-115); Magnesium 1.9 mg/dL (1.6-2.6); Potassium 3.5 mmol/L (3.5-5.1); Protein, Total 5.4 g/dL (5.8-8.1); Sodium 141 mmol/L (136-145)
[2024-07-25] MEDS: Potassium Bicarbonate/Cit Ac 20 MEQ TAB PO SCH (09:39)
[2024-07-25] MEDS: Pantoprazole 40 MG VIAL IVP SCH (09:40)
[2024-07-25] MEDS: Magnesium 2 GM/50 ML(in water) 2 GM in Premix 1 BAG IVPB SCH (09:42)
[2024-07-25 11:50] VITALS: BMI 40.8
[2024-07-25] MEDS: Sucralfate 1 GM TAB PO SCH (17:20)
[2024-07-25] MEDS: Apixaban 5 MG TAB PO SCH (20:01)
[2024-07-25] MEDS: Furosemide 40 MG (4 mL) VIAL SLOW IVP SCH (20:02)
[2024-07-26 06:02] LABS: ALT (SGPT) 60 U/L (8-55); AST (SGOT) 33 U/L (5-34); Albumin 2.5 g/dL (3.4-4.8); Alkaline Phosphatase 401 U/L (40-110); Anion Gap 11 mmol/L (10-20); BUN (Urea Nitrogen) 7 mg/dL (9.8-20.1); Bilirubin, Total 0.4 mg/dL (0.2-1.2); Calc. Creatinine Clearance 132 mL/min (70-130); Calcium 8.4 mg/dL (7.8-10.44); Carbon Dioxide 26 mmol/L (23-31); Chloride 107 mmol/L (98-107); Estimated GFR 103; Globulin 3.1 g/dL (2.4-3.5); Glucose 119 mg/dL (80-115); Potassium 3.3 mmol/L (3.5-5.1); Protein, Total 5.6 g/dL (5.8-8.1); Sodium 141 mmol/L (136-145)
[2024-07-26 06:28] LABS: #Basophils Less than 0.03 10x3/uL (0.0-0.2); %Basophils 0.3 % (0.0-1.0); %Eosinophils 2.4 % (0.0-10.0); %Lymphocytes 23.5 % (21.0-51.0); %Monocytes 4.8 % (0.0-10.0); %Neutrophils 68.5 % (42.0-75.0); Hemoglobin 7.8 g/dL (12.0-16.0); Mean Corpuscular HGB CONC 27.9 g/dL (32.0-36.0); Mean Corpuscular Hemoglobin 20.2 pg (27.0-31.0); Mean Corpuscular Volume 72.4 fL (78.0-98.0); Platelet Count 186 10x3/uL (130-400); RBC Distribution Width 25.1 % (11.5-14.5); Red Blood Cell (RBC) Count 3.87 mill/uL (4.20-5.40)
[2024-07-26] MEDS ORDERED: Potassium Chloride 20 MEQ TAB PO SCH (08:00)
[2024-07-26 08:44] LABS: Magnesium 2.2 mg/dL (1.6-2.6)
[2024-07-26 12:08] LABS: ANA Symphony (Qualitative) Negative (Negative); ANA Symphony (Quantitative) 0.1 Ratio (< 0.7 Negative); EliA Vaculitis New Method **** NEW METHOD ****; dsDNA IgG Antibody Less than 0.6 IU/mL (<10 Negative)
[2024-07-26 13:14] LABS: Potassium 3.6 mmol/L (3.5-5.1)
[2024-07-26] MEDS: Potassium Chloride 20 MEQ TAB PO SCH (14:13)
[2024-07-26] MEDS: clonazePAM 0.5 MG TAB PO PRN (17:57)
[2024-07-27 09:10] VITALS: BP 109/68; TEMP 98.7
== END 2024-07-27 11:28 | disposition home or self-care (01) | DRG 493 ==
LOC: ERS 10:23 → ERHOLD 15:10 → SURG B 17:04
PROVIDERS: ADMIT Orthopaedic Surgery; ATTEND Orthopaedic Surgery
PROC: 0QSG06Z Reposition Right Tibia with Intramedullary Internal Fixation Device, Open Approach (ICD-10-PCS; principal; 2024-07-22)
PROC: 5A09357 Assistance with Respiratory Ventilation, Less than 24 Consecutive Hours, Continuous Positive Airway Pressure (ICD-10-PCS; 2024-07-24)
DX: S82.301A Unspecified fracture of lower end of right tibia, initial encounter for closed fracture (principal); Z68.41 Body mass index [BMI] 40.0-44.9, adult; S82.831A Other fracture of upper and lower end of right fibula, initial encounter for closed fracture; W18.30XA Fall on same level, unspecified, initial encounter; M19.90 Unspecified osteoarthritis, unspecified site; Z98.890 Other specified postprocedural states; F41.9 Anxiety disorder, unspecified; I10 Essential (primary) hypertension; Z86.711 Personal history of pulmonary embolism; Z83.3 Family history of diabetes mellitus; Z79.899 Other long term (current) drug therapy; G89.4 Chronic pain syndrome; K59.00 Constipation, unspecified; D50.9 Iron deficiency anemia, unspecified; E66.01 Morbid (severe) obesity due to excess calories
CPT/HCPCS: 36415; 70450; 71045; 74181; 76705; 80048; 80053; 80074; 80076; 82105; 82728; 82977; 83516; 83550; 83735; 85025; 85610; 85730; 86015; 86038; 86225; 93005; 96372; 97139; C1713; J1100; J1171; J1885; J1940; J2272; J2371; J2405; J2470; J2543; J2550; J2704; J2916; J3010; J3475; J7050; J7120